=== PATIENT | female | born 1980 | race Caucasian/White ===

== ENCOUNTER 2021-08-08 15:22 | Outpatient (CLI) | payer BC, SELFPAY ==
--- NOTE | 2021-08-08 14:30 | LES_PTH ---
PATIENT: BILLY DOLAN LOC: [facility] U#:[id number] AGE/SX: 40/F ROOM: RE08/08/[address]: Dr. Kwesi Morton MD : 1980 BED: DIS: 08/08/2021 SPEC #: [id number] RECD: 08/08/21 16:36 STATUS: BREANA STEPH #: [id number] VAHE: 08/08/21 14:[address]: Kwesi Morton DEPT: SURGICAL PATHOLOGY RECD BY: Luh Corbin Tissues: Skin of perianal area Procedures: Surgery Specimen Level IV HEADER OPERATION: Condyloma removal PRE-OP DIAGNOSIS: HPV TISSUE SUBMITTED: Perineal condyloma MICROSCOPIC DIAGNOSIS Perineal condyloma, biopsy: Consistent with fragments of condyloma. AM:hesham 08/12/2021 MICROSCOPIC DESCRIPTION Slides are reviewed. GROSS DESCRIPTION Received in fixative is one container labeled with the patient's name and designated perineal condyloma. The specimen consists of two irregular fragments of ridley soft tissue each measuring 0.1 cm in greatest dimension. The specimen is totally submitted in one cassette. / SJ:rg 08/11/2021 TC:5 CPT: 07856
== END 2021-08-08 23:59 | disposition short-term general hospital (02) ==
LOC: LABSPEC 15:29
PROVIDERS: Visit Provider Obstetrics & Gynecology
DX: A63.0 Anogenital (venereal) warts (principal)
CPT/HCPCS: 88305

== ENCOUNTER 2023-01-01 14:44 | Outpatient (CLI) | payer BC, SELFPAY ==
--- NOTE | 2023-01-01 | IMM_PTH ---
PATIENT: BILLY DOLAN LOC: [facility] U#:[id number] AGE/SX: 42/F ROOM: RE01/01/[address]: Dr. Kwesi Morton MD : 1980 BED: DIS: 01/01/2023 SPEC #: [id number] RECD: 01/05/23 12:56 STATUS: BREANA STEPH #: [id number] VAHE: 01/01/23 00:[address]: Kwesi Morton DEPT: IMMUNOHISTOCHEMISTRY RECD BY: Ann Rolon Tissues: A - Uterine cervix, NOS B - Endocervical Procedures: p16 (initial) KI-67 (add) PHYSICIAN & INSTITUTION [place] [id number] SPECIMEN INFORMATION: Tissue Source: A - Cervix at 1, 5, 7 & 11 o'clock, B - Endocervical curettings Clinical Info: Abnormal findings Specimen Number: [id number] A & B CPT code: 28732 x2, 84373 x2 METHODOLOGY: Deparaffinized sections of prefer/formalin-fixed tissue or PAP/DQ stained slides are incubated with monoclonal/polyclonal antibodies/oligonucleotide probes. Localization is made via biotin free immunoperoxidase method. Appropriate controls are performed and reacted as expected. Results on target cell population are indicated in the following table: RESULTS: ANTIBODY / CLONE RESULT Block A P16 (E6H4) negative Ki-67 (30-9) positive, only in basal layer Block B P16 (E6H4) negative Ki-67 (30-9) positive, only in basal layer These tests were developed and their performance characteristics determined by [facility]. They may not have been cleared or approved by the U.[place]. Food and Drug Administration. The FDA has determined that such clearance or approval is not necessary. The above immunohistochemical/dualISH markers are ordered and reviewed by the Pathologist. INTERPRETATION: A. Cervix at 1, 5, 7 & 11 o'clock, biopsy: Negative for dysplasia. B. Endocervical curettings: Negative for dysplasia. SJ:hesham 01/06/2023
--- NOTE | 2023-01-01 15:30 | CER_PTH ---
PATIENT: BILLY DOLAN LOC: [facility]#:[id number] AGE/SX: 42/F ROOM: RE01/01/[address]: Dr. Kwesi Morton MD : 1980 BED: DIS: 01/01/2023 SPEC #: [id number] RECD: 01/04/23 09:31 STATUS: BREANA STEPH #: [id number] VAHE: 01/01/23 15:[address]: Kwesi Morton DEPT: SURGICAL PATHOLOGY RECD BY: Luh Corbin Tissues: A - Uterine cervix, NOS B - Endocervical Procedures: Surgery Specimen Level IV HEADER OPERATION: Colposcopy PRE-OP DIAGNOSIS: R87.619 Abnormal findings TISSUE SUBMITTED: A - Tischler colposcopy 1, 5, 7 & 11 o'clock, B - Endocervical curettings MICROSCOPIC DIAGNOSIS A. Cervix, 1, 5, 7 & 11 o'clock, biopsy: Fragments of ectocervical mucosa, negative for dysplasia. See comment. B. Endocervical curettings: Fragments of benign ecto- and endocervical epithelium, blood and mucous, negative for dysplasia. OLEG:hesham 01/05/2023 COMMENT A & B. Immunohistochemistry ([id number]) for surrogate HPV marker (p16) supports the above diagnosis. MICROSCOPIC DESCRIPTION Slides are reviewed. GROSS DESCRIPTION A - Received in fixative is one container labeled with the patient's name and designated colposcopy 1, 5, 7 & 11 o'clock. The specimen consists of multiple irregular fragments of ridley-pink soft tissue mixed with mucoid tissue that in aggregate measure 2.0 x 1.0 x 0.1 cm. The specimen is totally submitted in one cassette. B - Received in fixative is one container labeled with the patient's name and designated ECC. The specimen consists of multiple fragments of hemorrhagic mucoid tissue that in aggregate measure 2.5 x 2.0 x 0.2 cm. The specimen is totally submitted in one cassette. / OLEG:hesham 01/04/2023 TC:5 CPT: 56002 x2
== END 2023-01-01 23:59 | disposition home or self-care (01) ==
LOC: LABSPEC 14:44
PROVIDERS: Visit Provider Obstetrics & Gynecology
DX: R87.619 Unspecified abnormal cytological findings in specimens from cervix uteri (principal)
CPT/HCPCS: 88305; 88341; 88342